=== PATIENT | female | born 1950 | race Caucasian/White ===

== ENCOUNTER → 2018-04-10 15:25 | Outpatient (CLI) | payer BC, SELFPAY ==
[2018-04-10 16:55] LABS: Absolute Lymphocyte Count 0.55 X10^3/ul (0.83-4.51); Absolute Neutrophil Count 1.8 X10^3/uL (2.0-7.7); Basophil# 0.01 X10^3/uL; Basophil% 0.4 % (0-1); Eosinophil# 0.07 X10^3/uL; Eosinophils% 2.5 % (0-5); Hemoglobin 11.6 g/dl (12.0-15.0); Lymphocyte # 0.55 X10^3/ul (4.0); Lymphocyte % 19.6 % (19-41); Mean Corp Hgb Conc 33.1 g/gl (32-36); Mean Corpuscular Hgb 36.5 pg (27.0-32.0); Mean Corpuscular Volume 110.1 fL (81-99); Mean Platelet Vol. 10.6 fl (6.2-12.0); Monocyte# 0.34 X10^3/uL; Monocyte% 12.1 % (0-10); Neutrophil # 1.82 X10^3/uL (2.7-7.7); Platelet Count 43 K/mm3 (150-450); RBC Distribution Width SD 60.5 fl (35.1-43.9); Red Blood Count 3.18 M/mm3 (4.2-5.4); White Blood Count 2.8 K/mm3 (4.4-11.0)
[2018-04-10 16:59] LABS: Vitamin D,25 Hydroxy 55.9 ng/mL (29.95-100.01)
[2018-04-10 17:39] LABS: ALB/GLOB Ratio 0.5 RATIO (0.9-2.4); AST(SGOT) 51 U/L (15-37); Alanine Aminotransfer ALT/SGPT 36 U/L (13-56); Albumin, Serum 2.7 g/dL (3.2-5.0); Alkaline Phosphatase 81 U/L (45-117); Anion Gap 11 (5-15); BUN 11 mg/dL (7-18); BUN/Creat Ratio 11.3 RATIO (10-20); Calcium,Total 9.2 mg/dL (8.5-10.1); Chloride 94 mmol/L (98-107); Cholesterol 124 mg/dL (200); Creatinine, Serum 0.98 mg/dL (0.55-1.02); EST Glomerular Filtration Rate 61 mL/min (>60); Est Glom Filt Rate - Afr Amer 74 mL/min (>60); Ferritin 1469 ng/mL (8-252); Globulin 5.3 g/dL (2.2-4.2); Glucose 524 mg/dL (74-106); High Density Lipoprotein 25 mg/dL; Iron 168 ug/dL (50-170); Iron Binding Capacity,Total 165 ug/dL (250-450); PERCENT IRON SATURATION 101.8 % (15.0-55.0); Potassium 4.9 mmol/L (3.5-5.1); Sodium Level 132 mmol/L (136-145); Triglycerides 195 mg/dL; Very Low Density Lipoprotein 39 mg/dL (5-40)
[2018-04-10 17:41] LABS: Differential Indicated SCAN CRITERIA MET; POSITIVE COUNT YES; POSITIVE DIFFERENTIAL YES; POSITIVE MORPHOLOGY NO
[2018-04-10 17:42] LABS: Differential Comment SCANNED; Platelet Estimate MKD DEC (ADEQ)
[2018-04-13 12:04] LABS: Pathologist Review Reviewed
== END ==
DX: D61.818 Other pancytopenia (principal); I10 Essential (primary) hypertension; E61.1 Iron deficiency; E55.9 Vitamin D deficiency, unspecified; R74.8 Abnormal levels of other serum enzymes; Z13.820 Encounter for screening for osteoporosis
CPT/HCPCS: 36415; 80053; 80061; 82306; 82728; 83540; 83550; 85025

== ENCOUNTER 2019-08-03 17:10 | Emergency (ER) | payer MEDICARE, SELFPAY ==
[2019-08-03] VITALS (8 sets, daily range): BP systolic 98–139; BP diastolic 50–65; PULSE 84–88; RESP 16–22; TEMP 35.7–36; O2SAT 98–100; BMI 28.8
--- NOTE | 2019-08-03 17:20 | EKG12_ITS ---
Test Reason : GI BLEED Blood Pressure : / mmHG Vent. Rate : 083 BPM Atrial Rate : 083 BPM P-R Int : 152 ms QRS Dur : 092 ms QT Int : 428 ms P-R-T Axes : 041 -14 017 degrees QTc Int : 502 ms Normal sinus rhythm Inferior infarct , age undetermined Abnormal ECG Confirmed by EVE KRUGER ([id number]), senior technical editor JOSEFINA FLORES ([id number]) on 08/06/2019 11:25:10 AM Referred By: LEAH Confirmed By:EVE KURGER
--- NOTE | 2019-08-03 17:29 | ED.VIS.GEN ---
History of Present Illness Chief Complaint: GI Bleed Informant: Patient Onset: Yesterday Narrative: Brought from EMS from home reported call out for a fall from . However they reported noted profuse melanotic stools along with dry bright red blood from vomit. Patient reports history of cirrhosis for the past 4 years followed by [facility] GI Dr. Reeves. States last seen physician a month ago. States her last scope was a few months ago, denies ever having intervention for any varices. She reports daily alcohol use including today. Reports started vomiting yesterday noted bright red blood. Abdominal discomfort. Poor full history due to language barrier and alcohol use. She reports that GI bleed issues 3 years ago. She denies being on anticoagulation however states yesterday may have taken aspirin for abdominal discomfort however threw it up. She is a diabetic per EMS glucose was 529. Prior similar symptoms: Yes Past Medical History - Allergies and Home Meds Allergies/Adverse Reactions: Allergies No Known Allergies Allergy (Verified 08/03/19 17:11) Primary Care Physician: [facility] [address] Doctor,Out of [NON-STAFF] - Smoking Status: Former smoker Review of Systems General: Denies: Chills, Fever, Sweats Eyes: Denies: Visual changes - bilaterally, Diplopia ENT: Denies: Rhinorrhea, Sore throat Cardiovascular: Denies: Chest pain, Palpitations Respiratory: Denies: Dyspnea, Cough, Dyspnea on exertion Gastrointestinal: Reports: Abdominal pain, Nausea, Vomiting, Melena. Denies: Diarrhea, Hematochezia Genitourinary: Denies: Dysuria, Hematuria, Frequency Musculoskeletal: Denies: Back pain, Extremity Pain Skin: Denies: Rash, Wounds Neurological: Denies: Headache, Weakness, Numbness Physical Exam Vital Signs/Narrative: Vital Signs Temp Pulse Resp BP Pulse Ox 08/03/19 17:28 85 16 99 08/03/19 17:11 96.3 F L 86 22 H 115/60 99 Inital Vital Signs reviewed: Yes General: Unkempt, No Acute Distress, - - Protecting her airway, no acute distress. Mild alcohol smell. Eyes: Pale conjunctiva ENT: Dry mucous membranes, - - dry blood in nares Cardiovascular: Regular rate, Regular rhythm, No murmurs Respiratory: No distress, CTA bilaterally, Chest nontender Abdomen: - - Distended, no rebound or guarding, mild epigastric tenderness. Rectal: - - Renal Extremities: Nontender, No edema Skin: Normal color, No rash Neurological: Alert - Mild, Oriented x3 Psychological: Normal affect, Normal Mood Diagnostic/Tx/Re-eval Abnormal Lab Results 08/03/19 08/03/19 08/03/19 17:20 17:20 17:20 WBC 6.4 RBC 1.29 L Hgb 4.5 L* Hct 14.7 L MCV 114.0 H MCH 34.9 H MCHC 30.6 L RDW Std Deviation 68.8 H RDW Coeff of Nicole 16.7 H Plt Count 64 L MPV 10.9 Immature Gran % (Auto) 1.200 H Neut % (Auto) 74.9 H Lymph % (Auto) 12.3 L [place] % (Auto) 11.4 H Eos % (Auto) 0.0 Baso % (Auto) 0.2 Absolute Neuts (auto) 4.8 Absolute Lymphs (auto) 0.79 L Nucleated RBC % 0 Diff Path Review May foll Platelet Estimate MOD DEC Polychromasia RARE Anisocytosis 2+ Macrocytosis 2+ PT 28.6 H INR 2.7 APTT 218.7 H* Specimen Type Sample Site VBG pH VBG pO2 VBG O2 Sat (Calc) VBG O2 Content VBG Base Excess POC Mix VBG pCO2 Pt Tmp O2 Delivery Device Blood Gas Notified Whom Blood Gas Notified Time Sodium 138 Potassium 4.7 Chloride 102 Carbon Dioxide 13.0 L Anion Gap 23 H BUN 34 H Creatinine 0.97 Estim Creat Clear Calc 55.48 Est GFR (MDRD) Af Amer 73 Est GFR (MDRD) Non-Af 61 BUN/Creatinine Ratio 34.9 H Glucose 464 H* Calcium 7.7 L Total Bilirubin 1.80 H Direct Bilirubin 0.90 H AST 48 H ALT 31 Alkaline Phosphatase 65 Total Protein 4.4 L Albumin 1.8 L Globulin 2.6 Lipase 2283 H Ethyl Alcohol Acetone Level Blood Type Antibody Screen Crossmatch 08/03/19 08/03/19 08/03/19 17:20 17:20 17:20 WBC RBC Hgb Hct MCV MCH MCHC RDW Std Deviation RDW Coeff of Nicole Plt Count MPV Immature Gran % (Auto) Neut % (Auto) Lymph % (Auto) [place] % (Auto) Eos % (Auto) Baso % (Auto) Absolute Neuts (auto) Absolute Lymphs (auto) Nucleated RBC % Diff Path Review Platelet Estimate Polychromasia Anisocytosis Macrocytosis PT INR APTT Specimen Type Sample Site VBG pH VBG pO2 VBG O2 Sat (Calc) VBG O2 Content VBG Base Excess POC Mix VBG pCO2 Pt Tmp O2 Delivery Device Blood Gas Notified Whom Blood Gas Notified Time Sodium Potassium Chloride Carbon Dioxide Anion Gap BUN Creatinine Estim Creat Clear Calc Est GFR (MDRD) Af Amer Est GFR (MDRD) Non-Af BUN/Creatinine Ratio Glucose Calcium Total Bilirubin Direct Bilirubin AST ALT Alkaline Phosphatase Total Protein Albumin Globulin Lipase Ethyl Alcohol 115.0 Acetone Level NEGATIVE Blood Type A POSITIVE Antibody Screen NEGATIVE Crossmatch See Detail 08/03/19 17:54 WBC RBC Hgb Hct MCV MCH MCHC RDW Std Deviation RDW Coeff of Nicole Plt Count MPV Immature Gran % (Auto) Neut % (Auto) Lymph % (Auto) [place] % (Auto) Eos % (Auto) Baso % (Auto) Absolute Neuts (auto) Absolute Lymphs (auto) Nucleated RBC % Diff Path Review Platelet Estimate Polychromasia Anisocytosis Macrocytosis PT INR APTT Specimen Type SOURAV Sample Site OTHER VBG pH 7.13 L* VBG pO2 41 H VBG O2 Sat (Calc) 61 VBG O2 Content 11 L VBG Base Excess -19 L POC Mix VBG pCO2 Pt Tmp 30.2 L O2 Delivery Device Room Air Blood Gas Notified Whom ED MD Blood Gas Notified Time 1752 Sodium Potassium Chloride Carbon Dioxide Anion Gap BUN Creatinine Estim Creat Clear Calc Est GFR (MDRD) Af Amer Est GFR (MDRD) Non-Af BUN/Creatinine Ratio Glucose Calcium Total Bilirubin Direct Bilirubin AST ALT Alkaline Phosphatase Total Protein Albumin Globulin Lipase Ethyl Alcohol Acetone Level Blood Type Antibody Screen Crossmatch - Medical Decision Making Patient vital signs stable on arrival, however she is on a beta-dell of atenolol which may suppress her heart rate. Is alert protecting her airway, she has significant pale conjunctiva and pallor of the skin. With profuse melanotic stools as watery I ordered immediately for 2 units of blood along with somatostatin bolus and drip for concerns of variceal bleed with her cirrhosis history. With her specialist at [facility], I discussed with transfer line and sorter laundry articles Dr. Rosalino Rene updated on concerns. She is accepted to their facility, he did note if we can wait for hemoglobin before starting blood transfusion if less than 7. However results returned shortly after discussion with a hemoglobin of 4.5. With blood still being prepared, 2 units of O- blood was ordered and given with consent. Platelets was 64, 5 pack of platelets also ordered. VBG pH of 1, she had glucose in the 400s anion gap of 23 acetone was added. She is given 2 L of normal saline, her blood pressure remained stable her acetone returned negative. Lipase did return elevated to 2200 likely pancreatitis with her alcohol history explaining her pain symptoms. Multiple re-evaluations vitals remained stable, awaiting bed by [facility] currently 1851. 192: Serum acetone levels return negative. She continued IV fluids, vitals remained stable, there was significant delay for critical transport by ground, discussed with critical transport at [facility] will be transported by air due to critical condition. Family updated. - Critical Care Time Critical care time (excluding procedures): 30-74 minutes, Discussing w/Patient &/or Family/Safety Compliance Specialist, Discussing w/Consultants, Arranging Admission or Transfer ED Disposition - Plan for ED Patient: Disposition: [facility] - Main Diagnosis: GI bleed, Anemia, Cirrhosis of liver, Pancreatitis, Thrombocytopenia Referrals: [facility] [address] Doctor,Out of [NON-STAFF] -
[2019-08-03] MEDS: Ondansetron 4 MG/2 ML Vial IV ×3 (17:41→18:55)
[2019-08-03] MEDS: 0.9% Normal Saline 1,000 ML 150 ML IV (17:41)
[2019-08-03 17:42] LABS: Absolute Lymphocyte Count 0.79 X10^3/uL (0.83-4.51); Absolute Neutrophil Count 4.8 X10^3/uL (2.0-7.7); Basophil# 0.01 X10^3/uL; Basophil% 0.2 % (0-1); Hematocrit 14.7 % (37-47); Lymphocyte # 0.79 X10^3/ul (4.0); Lymphocyte % 12.3 % (19-41); Mean Corp Hgb Conc 30.6 g/dL (32-36); Mean Corpuscular Hgb 34.9 pg (27.0-32.0); Mean Platelet Vol. 10.9 fl (6.2-12.0); Monocyte# 0.73 X10^3/uL; Monocyte% 11.4 % (0-10); NRBC Flagged by Analyzer 0 % (0-5); Neutrophil # 4.81 X10^3/uL (2.7-7.7); Neutrophil % 74.9 % (47-70); POSITIVE COUNT YES; POSITIVE MORPHOLOGY YES; RBC Distribution Width CV 16.7 % (11.6-14.6); RBC Distribution Width SD 68.8 fl (35.1-43.9); Red Blood Count 1.29 M/mm3 (4.2-5.4); White Blood Count 6.4 K/mm3 (4.4-11.0)
[2019-08-03] MEDS: Octreotide 0.1 MG/ML ML 0.05 MG IV (17:43)
[2019-08-03 17:47] LABS: Differential Indicated SCAN CRITERIA MET; Hemoglobin 4.5 g/dL (12.0-15.0); Platelet Count 64 K/mm3 (150-450)
--- NOTE | 2019-08-03 17:49 | ED.RN ---
hbg 4.5 called from the lab plt [address] called from [address] lab. dr woodward
[2019-08-03 18:01] LABS: Blood Gas Specimen Type VEN; O2 Delivery Device Room Air; SITE OTHER; Time Given 1752; VBG BASE EXCESS -19 mmol/L (-1.0-3.5); VBG Bicarbonate 10 mmol/L (22-26); VBG Oxygen Content 11 mmol/L (23-33); VBG PO2 41 mmHg (25-40); VBG SO2 61 % (50-70); VBG pCO2 30.2 mmHg (41-51); VBG pH 7.13 (7.32-7.42)
--- NOTE | 2019-08-03 18:03 | ED.RN ---
notified Dr. Levy of glucose 464
[2019-08-03 18:04] LABS: AST(SGOT) 48 U/L (15-37); Alanine Aminotransfer ALT/SGPT 31 U/L (13-56); Albumin, Serum 1.8 g/dL (3.2-5.0); Alkaline Phosphatase 65 U/L (45-117); Anion Gap 23 (5-15); BUN 34 mg/dL (7-18); BUN/Creat Ratio 34.9 RATIO (10-20); Calcium,Total 7.7 mg/dL (8.5-10.1); Chloride 102 mmol/L (98-107); Creatinine, Serum 0.97 mg/dL (0.55-1.02); EST Glomerular Filtration Rate 61 mL/min (>60); Est Glom Filt Rate - Afr Amer 73 mL/min (>60); Estimated Creatinine Clearance 55.48 ml/min; Globulin 2.6 g/dL (2.2-4.2); Glucose 464 mg/dL (74-106); Lipase 2283 U/L (73-393); Potassium 4.7 mmol/L (3.5-5.1); Protein, Total 4.4 g/dL (6.4-8.2); Sodium Level 138 mmol/L (136-145)
[2019-08-03 18:05] LABS: International Normalized Ratio 2.7; Prothrombin Time (Protime)PT. 28.6 SECONDS (11.7-14.9)
--- NOTE | 2019-08-03 18:05 | CPS ---
CRITICAL VBG RESULTS GIVEN TO DR. LYNN
[2019-08-03 18:11] LABS: Partial Thromboplast Time 218.7 Seconds (24.1-36.2)
--- NOTE | 2019-08-03 18:12 | ED.RN ---
ptt 218.7 called from the lab dr woodward
[2019-08-03 18:15] LABS: Anisocytosis 2+; Macrocytosis 2+; Platelet Estimate MOD DEC (ADEQ)
[2019-08-03 18:16] LABS: Polychromasia RARE
[2019-08-03] MEDS: 0.9% Normal Saline 1,000 ML 999 ML IV ×2 (18:32→19:18)
--- NOTE | 2019-08-03 19:33 | ED.RN ---
pt with medium loose liquid stool. black and tarry in consistency. depends changed.
--- NOTE | 2019-08-03 20:04 | ED.RN ---
1952 [facility] clinic flight at bedside
--- NOTE | 2019-08-03 20:05 | ED.RN ---
third unit of RBC infusing, forth unit sent with [facility] transport team.
[2019-08-04 14:36] LABS: Pathologist Review Reviewed
== END 2019-08-03 20:07 | disposition short-term general hospital (02) ==
PROVIDERS: Emergency Provider Emergency Medicine; Family Provider Internal Medicine; PCP Internal Medicine
DX: K92.2 Gastrointestinal hemorrhage, unspecified (principal); D64.9 Anemia, unspecified; K74.60 Unspecified cirrhosis of liver; K85.90 Acute pancreatitis without necrosis or infection, unspecified; D69.6 Thrombocytopenia, unspecified; E11.9 Type 2 diabetes mellitus without complications; Z79.899 Other long term (current) drug therapy; Z87.891 Personal history of nicotine dependence
CPT/HCPCS: 80048; 80076; 80320; 82009; 82803; 83690; 85025; 85610; 85730; 86850; 86900; 86901; 86920; 86922; 93005; 96361; 96374; 96375; 96376; 99285; J7030; J7040; P9016; A4216; G0480; J2354; J2405